=== PATIENT | female | born 1950 | race Two or more races ===

== ENCOUNTER 2018-03-12 10:36 | Emergency (ER) | payer OTHER ==
[~2018-03-12] VITALS: Ht 188 cm; Wt 78.5 kg
[2018-03-12] MEDS ORDERED: VENTOLIN HFA18 GM (11:14)
[2018-03-12] MEDS ORDERED: TUSICOF LIQUID120 ML (11:14)
[2018-03-12] MEDS ORDERED: ZOCOR40 MG (11:16)
[2018-03-12] MEDS ORDERED: SINGULAIR10 MG (11:17)
[2018-03-12] MEDS ORDERED: SYMBICORT 16010.2 GM (11:17)
[2018-03-12] MEDS ORDERED: METFORMIN HCL500 MG (11:18)
== END 2018-03-12 21:25 | disposition home or self-care (01) ==
LOC: ER 10:36
DX: J45.998 Other asthma (principal); J11.1 Influenza due to unidentified influenza virus with other respiratory manifestations

== ENCOUNTER 2020-11-12 11:46 | Emergency (ER) | payer OTHER ==
[~2020-11-12] VITALS: Ht 157.5 cm; Wt 82.6 kg
[~2020-11-12 11:46] MED LIST: METFORMIN HCL500 MG; SINGULAIR10 MG; SYMBICORT 16010.2 GM; TUSICOF LIQUID120 ML; VENTOLIN HFA18 GM; ZOCOR40 MG
[2020-11-12] MEDS ORDERED: ZESTORETIC 10-1 EACH (12:09)
[2020-11-12] MEDS ORDERED: SKELAXIN800 MG PO (15:45)
[2020-11-12] MEDS ORDERED: KETO10TA2 PO (15:45)
== END 2020-11-12 16:00 | disposition home or self-care (01) ==
LOC: ER 11:46
DX: S20.211A Contusion of right front wall of thorax, initial encounter (principal); S00.03XA Contusion of scalp, initial encounter; M54.2 Cervicalgia; M62.838 Other muscle spasm; W10.8XXA Fall (on) (from) other stairs and steps, initial encounter; Y93.89 Activity, other specified; Y92.59 Other trade areas as the place of occurrence of the external cause; Y99.8 Other external cause status